=== PATIENT | male | born 1960 | race Two or more races ===

== ENCOUNTER 2025-02-04 10:40 | Outpatient (AMB) | payer OTHER, SELFPAY ==
[2025-02-04 10:51] VITALS: BP 131/64; TEMP 36.6; BMI 35.0
--- NOTE | 2025-02-04 10:51 | A.PHYSOV_ITS ---
Vital Signs 02/04/25 10:51 Height 5 ft 8 in Weight 230 lb BMI 35.0 BP 131/64 Temp 98 F Temp Source Tympanic Intake Visit Reasons: Lumbar SHANELLE L5-S1 Allergies amlodipine Allergy (Unknown, Verified 02/04/25 10:50) Unknown [facility] Medical History (Updated 02/04/25 @ 10:53 by Orlin Hamilton DO) Lumbar radiculitis Surgical History (Updated 02/01/25 @ 11:30 by Dulce Grijalva MA) History of shoulder surgery (Unknown) History of hernia repair (Unknown) History of back surgery (Unknown) Social History (Updated 02/01/25 @ 11:31 by Dulce Grijalva MA) Household Members: Spouse Alcohol intake: current Alcohol intake frequency: holidays/special occasions only Use of substances other than those prescribed or required for medical reasons: No Physical Exam Vital Signs: BMI result Body Mass Index 35.0 Office Procedures Procedure Details: Procedure performed; L5-S1 lumbar epidural steroid injection Preop diagnosis: Lumbar radiculitis Postop diagnosis: The same After informed consent was obtained patient was brought into the procedure room and placed in the prone position on the procedure table. Skin over the lumbar sacral area was prepped and draped in usual sterile manner. L5-S1 interlaminar space was visualized utilizing fluoroscopy. After skin was anesthetized with 1% lidocaine solution, 3.5 in 20 gauge Toughy needle was introduced percutaneously and advanced toward the epidural space at the indicated level. Loss of resistance technique was utilized. Needle placement was verified utilizing 3 cc of Omnipaque contrast solution. Excellent epidural spread was visualized without evidence of vascular uptake. Total volume of 8 cc containing 2 cc of 1% lidocaine, 40 mg of triamcinolone and normal saline solution were injected after negative aspiration for blood and cerebrospinal fluid. Radiation exposure was documented in the chart. Lumbar Interlaminar Epidural 80773- use with FL Gd order: Lumbar Interlaminar Epidural Steroid Injection 24568 Procedure code (CPT) selection complete Office Meds Kenalog 40 mg/mL suspension for injection Performing Provider: Orlin Hamilton DO Performing Location: [facility] [place] [facility] [place] [facility] Administered by: Orlin Hamilton DO on 02/04/25 10:54 Dose Route Admin Location Dispensed Lot Number Expiration Date [facility] [place] [employer] 40 mg epidural 1 mL [address]-1 [facility] Total Dispensed Waste 1 mL 0 % lidocaine (PF) 10 mg/mL (1 %) injection solution Performing Provider: Orlin Hamilton DO Performing Location: [facility] Administered by: Orlin Hamilton DO on 02/04/25 10:54 Dose Route Admin Location Dispensed Lot Number Expiration Date [facility] [place] [employer] 50 mg epidural 5 mL 98100-567-80 [employer] Total Dispensed Waste 5 mL 0 % Omnipaque 300 300 mg iodine/mL intravenous solution Performing Provider: Orlin Hamilton DO Performing Location: [facility] Administered by: Orlin Hamilton DO on 02/04/25 10:54 Dose Route Admin Location Dispensed Lot Number Expiration Date [facility] [place] It [employer] Administrator 3 mL epidural 10 mL 3075-9255-89 [facility] Total Dispensed Waste 10 mL 70 % Assessment & Plan Assessment & Plan (1) Lumbar radiculitis: Code(s): M54.16 - Radiculopathy, lumbar region Category: Medical Plan L5-S1 interlaminar epidural injection was administered Orders: Orders FL Gd L Spine Interlaminar Inj Today M54.16 - Radiculopathy, lumbar region AMB Lumbar Interlaminar Epidural Steroid Injection Today M54.16 - Radiculopathy, lumbar region Coding Level of Care Code Procedure Only Diagnoses Lumbar radiculitis M54.16 CPT Codes Lumbar Interlaminar Epidural Steroid I - 53222 - Lumbar Interlaminar Epidural: Lumbar Interlaminar Epidural Steroid Injection [id number] ([id number])
== END 2025-02-04 11:10 | disposition home or self-care (01) ==
LOC: HO.HPHYS 10:41
PROVIDERS: Visit Provider Physical Medicine & Rehabilitation
DX: M54.16 Radiculopathy, lumbar region (principal)
CPT/HCPCS: 62323

== ENCOUNTER 2025-02-04 10:40 | Outpatient (REF) | payer OTHER, SELFPAY | END 2025-02-04 10:41 | disposition home or self-care (01) | LOC: HO.HPHYSR 10:40 | PROVIDERS: Visit Provider Physical Medicine & Rehabilitation | DX: M54.16 Radiculopathy, lumbar region (principal) | CPT/HCPCS: 62323; J2003; J3301; Q9967 ==